=== PATIENT | female | born 1960 | race Caucasian/White ===

== ENCOUNTER 2022-09-25 21:41 | Emergency (ER) | payer BC ==
[2022-09-25] MEDS ORDERED: Fentanyl 100 MCG/2 ML VIAL ONE ×2 (22:11→23:43)
[2022-09-25] MEDS ORDERED: Ondansetron PF 4 MG/2 ML Vial ONE (22:12)
[2022-09-25] MEDS ORDERED: PROPOFOL 20 ML ONE (23:20)
== END 2022-09-26 01:02 | disposition home or self-care (01) ==
LOC: CSHERS 21:41
DX: S82.842A Displaced bimalleolar fracture of left lower leg, initial encounter for closed fracture (principal); W23.1XXA Caught, crushed, jammed, or pinched between stationary objects, initial encounter; Y93.61 Activity, american tackle football
CPT/HCPCS: 27810; 94760; 96374; 96375; 96376; 99152; 99153; J2405; J2704; J3010